=== PATIENT | female | born 1970 | race Caucasian/White ===

== ENCOUNTER 2016-10-15 19:14 | Emergency (ER) | payer MEDICAID ==
[~2016-10-15] VITALS: Ht 170.2 cm; Wt 52.3 kg
[~2016-10-15 19:14] MED LIST: AMIT8CAP6 PO; FENT25DI T-DERMAL; FERR324T4 PO; GAS-80CH CHEW; HYDR-4197 PO; TAB-TAB PO
[2016-10-15 19:17] VITALS: BP 104/59; PULSE 78; RESP 14; TEMP 97.4; O2SAT 99
[2016-10-15] MEDS ORDERED: SENN8.6T81 PO (19:39)
[2016-10-15] MEDS ORDERED: METH10TA PO (19:39)
[2016-10-15] MEDS ORDERED: ACET650S4 RECTAL (19:39)
[2016-10-15] MEDS ORDERED: LORA2TAB7 PO (19:39)
[2016-10-15] MEDS ORDERED: LORA1TAB12 PO (19:39)
[2016-10-15] MEDS ORDERED: ATRO1SOL11 SL (19:39)
[2016-10-15] MEDS ORDERED: FURO20TA PO (19:39)
[2016-10-15] MEDS ORDERED: PROM1SUP9 RECTAL (19:39)
[2016-10-15] MEDS ORDERED: SODIUM CHLORIDE 0.9% FLUSH 5 ML FLUSH IVF PRN (20:00)
--- NOTE | 2016-10-15 20:40 | RADRPT ---
EXAM DATE/TIME: 10/15/2016 20:22 [place] COMPARISON: No previous studies available for comparison. INDICATIONS : Evaluate right sided nephrostomy tube placement. ORAL CONTRAST: No oral contrast ingested. 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 SURGICAL HISTORY : Urostomy; renal stent; nephrostomy tube ENCOUNTER: Initial ACUITY: 1 day PAIN SCALE: 0/10 LOCATION: Right Abdomen/pelvis TECHNIQUE: Volumetric scanning of the abdomen and pelvis was performed. Using automated exposure control and ad justment of the mA and/or kV according to patient size, radiation dose was kept as low as reasonably achievable to obtain optimal diagnostic quality images. FINDINGS: Bilateral pleural effusions are present with slight left lung base consolidation. Minimal scarri ng is present in the right middle lobe and lingula. There is a large mass in the right hepatic lobe a lmost 8.7 cm in size highly suspicious for metastatic disease. There is diffuse anasarca. Right percu taneous nephrostomy tube is present with moderate hydronephrosis. Double J stent is present on the le ft side with proximal tip overlapping the kidney and distal tip overlapping the bladder. No definite calcified stones are identified adjacent to the stent. There is gas and debris within the bladder in this patient with known vesicovaginal fistula. The pre-could partially be stool. CONCLUSION: 1. Moderate hydronephrosis in right kidney and a percutaneous nephrostomy tube is in place. 2. Known vesicovaginal fistula. 3. Bilateral pleural effusions anasarca and ascites is also suspected difficult to characterize due t o presence of extensive anasarca. 4. Large mass in the liver highly suspicious for metastatic disease. Viktor Carlson MD on October 15, 2016 at 20:33 Board Certified Radiologist. This report was verified electronically.
[2016-10-15] MEDS ORDERED: LIDOCAINE HCL 1% 50 ML VIAL INFIL ONE (22:15)
[2016-10-15 22:46] LABS: BICARBONATE 25.1 MEQ/L (21.0-32.0); POTASSIUM 4.6 MEQ/L (3.5-5.1)
[2016-10-15 23:23] LABS: CALCIUM-PROTEIN CORRECTED 8.2 MG/DL (8.5-10.1)
[2016-10-15] MEDS ORDERED: LIDOCAINE 1%/EPINEPHrine 1:100,000 SOLN 20 ML VIAL INFIL ONE (23:30)
--- NOTE | 2016-10-16 | PD ---
HPI Chief Complaint: Refrigeration Person Problem Time Seen by Provider: 19:50 Travel History International Travel<30 days: No Contact w/Intl Traveler<30days: No Traveled to known affect area: No History of Present Illness HPI Patient is a 46-year-old female presents with HER-2 daughters for evaluation of leaking nephrostomy tube in the right flank. Patient has a history of cervical cancer with multiple metastases and obstructive uropathy from her malignancies. Patient had nephrostomy tube placed some time ago by a physician at [facility]. Recently they noticed that the urine was leaking around the tube and that her nephrostomy bag was no longer filling. Otherwise they state the patient's been status quo. No fevers no abdominal pain no nausea no vomiting more than usual. Patient states she is still been making urine through her urethra as well. PFSH Past Medical History Cancer: Yes (cervical cancer mets to liver ) Chemotherapy: Yes Genitourinary: Yes (bilateral hydronephrosis) Medical other: Yes (small bowel obstruction, currently has cdiff) Reproductive: Yes (vesicovaginal fistula) Tetanus Vaccination: < 5 Years ?: Not : 3 Para: 3 Past Surgical History Genitourinary Surgery: Yes (left kidney stent, urostomy ) Social History Alcohol Use: No Tobacco Use: No Substance Use: No Allergies-Medications (Allergen,Severity, Reaction): Coded Allergies: No Known Allergies (Unverified , 10/16/16) Reported Meds & Prescriptions Reported Meds & Active Scripts Active Reported Sennosides 8.6 Mg Tab 8.6 Mg PO Q12HR Promethazine Supp (Promethazine HCl) 25 Mg Supp 25 Mg RECTAL Q6H PRN Methadone (Methadone HCl) 10 Mg Tab 10 Mg PO Q8HR Lorazepam 1 Mg Tab 1 Mg PO Q3HR PRN Lorazepam 2 Mg Tab 2 Mg PO Q3HR PRN Furosemide 20 Mg Tab 20 Mg PO BID Acetaminophen Supp (Acetaminophen) 650 Mg Supp 650 Mg RECTAL Q4-6H PRN Atropine Opth Drops 1% Soln 2 Drop SL Q4H PRN Ferrous Sulfate 325 Mg Tab 325 Mg PO DAILY Multivitamin (Multivitamins) 1 Tab Tab 1 Tab PO DAILY Gas-X (Simethicone) 80 Mg Chw 80 Mg CHEW Q8H PRN Amitiza (Lubiprostone) 8 Mcg Cap 8 Mcg PO BID PRN [id number] Mcg/H1 25 Mcg/Hr Dis 1 Patch T-DERMAL Q3D Dilaudid 4 Mg Tab (Hydromorphone Hcl) 4 Mg Tab 4 Mg PO Q4H PRN Review of Systems Except as stated in HPI: all other systems reviewed are Neg Physical Exam Narrative GENERAL: Well-developed emaciated appears much older than stated age. SKIN: Warm and dry. HEAD: Atraumatic. Normocephalic. EYES: Pupils equal and round. No scleral icterus. No injection or drainage. ENT: No nasal bleeding or discharge. Mucous membranes pink and moist. NECK: Trachea midline. No JVD. CARDIOVASCULAR: Regular rate and rhythm. No murmur appreciated. RESPIRATORY: No accessory muscle use. Clear to auscultation. Breath sounds equal bilaterally. GASTROINTESTINAL: Abdomen soft, non-tender, nondistended. Hepatic and splenic margins not palpable. There is a nephrostomy tube in the right flank, the suture material is still wrapped around the tube is pulled away from the skin. There is clear urine in the bag however there is some sediment. MUSCULOSKELETAL: No obvious deformities. No clubbing. No cyanosis. No edema. NEUROLOGICAL: Awake and alert. No obvious cranial nerve deficits. Motor grossly within normal limits. Normal speech. PSYCHIATRIC: Appropriate mood and affect; insight and judgment normal. Data Data Last Documented VS Vital Signs Date Time Temp Pulse Resp B/P Pulse Ox O2 Delivery O2 Flow Rate FiO2 10/16/16 00:22 98/58 10/15/16:17 97.4 78 14 99 Orders Basic Metabolic Panel (Bmp) (10/15/16 19:59) Complete Blood Count With Diff (10/15/16 19:59) Ct Abd/Pel W/O Iv Contrast (10/15/16 19:59) Iv Access Insert/Monitor (10/15/16 19:59) Ecg Monitoring (10/15/16 19:59) Oximetry (10/15/16 19:59) Sodium Chloride 0.9% Flush (Ns Flush) (10/15/16 20:00) Lidocaine 1% Inj (50 Ml) (Xylocaine 1% I (10/15/16 22:15) Protein Corrected Calcium(Pcc) (10/15/16 21:15) Lidocai-Epi 1%-1:100,000 Inj (Xylocaine- (10/15/16 23:30) Labs Laboratory Tests Test 10/15/16 21:15 Sodium Level 140 MEQ/L Potassium Level 4.6 MEQ/L Chloride Level 105 MEQ/L Carbon Dioxide Level 25.1 MEQ/L Anion Gap 10 MEQ/L Blood Urea Nitrogen 68 MG/DL Creatinine 1.70 MG/DL Estimat Glomerular Filtration 32 ML/MIN Rate Random Glucose 67 MG/DL Calcium Level 7.2 MG/DL Protein Corrected Calcium 8.2 MG/DL Total Protein 5.3 GM/DL MDM Medical Decision Making Medical Screen Exam Complete: Yes Emergency Medical Condition: Yes Differential Diagnosis Nephrostomy tube dysfunction, acute kidney injury, urinary tract infection, nephrostomy tube dislodging, hydronephrosis, metastatic disease. Narrative Course Patient is an unfortunate 46-year-old female with a history of metastatic cervical cancer. She is on hospice. She presents today with urine leaking around her nephrostomy tube. A CAT scan shows the nephrostomy tube is in good position. Close examination I believe the nephrostomy tube is likely clogged. There is some hydronephrosis on her CAT scan. Her creatinine is elevated to 1.7 which is higher than her previous value here; in May her creatinine was 0.74. This more likely is from an obstructive uropathy but may be the patient's baseline she's not had labs since then. Patient's protein corrected calcium is low 8.2, otherwise her electrolytes are within normal limits. I discussed the results with the patient's unfortunately her daughters and 40 left. The patient has expressed her wishes to go home at this time. I discussed the risks that if the patient's kidney function continues to decline she may ultimately have electrolyte abnormalities which could lead to cardiac dysfunction and . Patient understands the risks and still would like to go home. Given that she is on hospice I see no reason why he shouldn't honor the patient's wishes to go home. I have re-sewn her nephrostomy tube in place. And I refer requested that the patient follow-up. Closely with her oncologist and her kidney doctor by phone in the morning. A hospice nurse arrived at the bedside who also informed the hospitalist physician. I wish to miss Ryland well and discussed with her that if she decided to return to emergency department for further evaluation of her nephrostomy tubes she is invited to do so. Procedures Procedure Narrative Patient's nephrostomy tube and skin surrounding was prepped with chlorhexidine. Using sterile gloves and sterile technique the patient was anesthetized near the nephrostomy tube with 1% lidocaine plain approximately half a cc. Using a 3 -0 permanent hand silk on a straight needle, the skin was punctured and the silk was wrapped around the tube in normal fashion and secured with not. The tube was then dressed with gauze and a bandage. Diagnosis Primary Impression: Malfunction of nephrostomy tube Disposition: DISCHARGE HOME Condition: Stable Bernardino Munoz MD Oct 16, 2016 00:00
[2016-10-16 00:22] VITALS: BP 98/58
== END 2016-10-16 01:54 | disposition home or self-care (01) ==
LOC: NEPA 19:14
DX: N99.522 Malfunction of incontinent external stoma of urinary tract (principal); C53.9 Malignant neoplasm of cervix uteri, unspecified; C79.89 Secondary malignant neoplasm of other specified sites; N13.9 Obstructive and reflux uropathy, unspecified; Z87.448 Personal history of other diseases of urinary system
CPT/HCPCS: 74176; 80048; 84155